=== PATIENT | female | born 1970 | race Caucasian/White ===

== ENCOUNTER 2019-02-06 08:45 | Emergency (ER) | payer MEDICARE, MEDICAID ==
[2019-02-06] MEDS ORDERED: METHYLPREDNISOLONE PF 125MG/VIAL IVP ONE (09:18)
[2019-02-06] MEDS ORDERED: IPRATROPIUM/ALBUTEROL (0.5MG/3MG) NEB INH ONE (09:18)
[2019-02-06 09:35] LABS: ABSOLUTE NEUTROPHIL COUNT 4.48; BASO % 0.2 % (0-6); EOS % 2.1 % (0-6); GRAN % 53.3 % (47-80); HEMATOCRIT 41.2 % (35.0-47.0); HEMOGLOBIN 13.1 gm/dl (11.6-16.0); LYMPH % 36.3 % (16-45); MEAN CELL VOLUME 87.7 fl (81-97); MEAN CORPUSCULAR HEMOGLOBIN 27.9 pg (27-33); MEAN CORPUSCULAR HGB CONC 31.8 g/dl (32-36); MONO % 8.1 % (0-9); PLATELET COUNT 385 K/uL (130-400); RED CELL DISTRIBUTION WIDTH 14.3 % (11.5-14.5); WHITE BLOOD COUNT W/O DIFF 8.4 K/uL (4.2-12.2)
--- NOTE | 2019-02-06 09:35 | Emergency Department Record ---
History of Present Illness - General Chief Complaint: Cough Stated Complaint: PERRY Time Seen by Provider: 02/06/19 08:52 Source: Patient Mode of Arrival: Ambulatory Limitations: No limitations - History of Present Illness Initial Comments: pt feels sob, has cough and has pain in her back that wraps around her chest that gets worse with movement. it started a week ago. no fevers. cough is nonproductive. this feels similar to when she had bronchitis only worse. MD Complaint: Cough, Other (sob) Onset/Timin -: Week(s) Severity: Moderate Severity scale (1-10): 4 Consistency: Intermittent Improves With: Rest Worsens With: Activity, Changing head position, Deep breaths Associated Symptoms: Chest pain, Cough, Myalgias, Shortness of breath - Related Data Previous Rx's Medication Instructions Recorded Prednisone [Prednisone 20Mg] 20 mg PO Q12HR #7 tab 02/06/19 Allergies Allergy/AdvReac Type Severity Reaction Status Date / Time lidocaine HCl [From Anastia] Allergy Severe ALTERED Verified 02/06/19 08:52 MENTAL STATUS Travel Screening - Travel/Exposure Within Last 30 Days Have you traveled within the last 30 days?: No - Travel/Exposure Within Last Year Have you traveled outside the [place] in the last year?: No - Additonal Travel Details Have you been exposed to anyone with a communicable illness?: No - Travel Symptoms Symptom Screening: None Review of Systems Reviewed: No additional complaints except as noted below Constitutional: Reports: As per HPI. Denies: Chills, Fever, Malaise, Night sweats, Weakness, Weight change Eyes: Reports: As per HPI. Denies: Eye discharge, Eye pain, Photophobia, Vision change ENT: Reports: As per HPI, Congestion. Denies: Dental pain, Ear pain, Epistaxis, Hearing loss, Throat pain Respiratory: Reports: As per HPI, Cough, Dyspnea. Denies: Hemoptysis, Stridor, Wheezes Cardiovascular: Reports: As per HPI, Chest pain. Denies: Arrhythmia, Dyspnea on exertion, Edema, Murmurs, Orthopnea, Palpitations, Paroxysmal nocturnal dyspnea, Rheumatic Fever, Syncope Endocrine: Reports: As per HPI. Denies: Fatigue, Heat or cold intolerance, Polydipsia, Polyuria Gastrointestinal: Reports: As per HPI. Denies: Abdominal pain, Constipation, Diarrhea, Hematemesis, Hematochezia, Melena, Nausea, Vomiting Genitourinary: Reports: As per HPI. Denies: Abnormal menses, Discharge, Dyspareunia, Dysuria, Frequency, Hematuria, Incontinence, Retention, Urgency Musculoskeletal: Reports: As per HPI, Back pain. Denies: Arthralgia, Gout, Joint swelling, Myalgia, Neck pain Skin: Reports: As per HPI. Denies: Bruising, Change in color, Change in hair/nails, Lesions, Pruritus, Rash Neurological: Reports: As per HPI. Denies: Abnormal gait, Confusion, Headache, Numbness, Paresthesias, Seizure, Tingling, Tremors, Vertigo, Weakness Psychiatric: Reports: As per HPI. Denies: Anxiety, Auditory hallucinations, Depression, Homicidal thoughts, Suicidal thoughts, Visual hallucinations Hematological/Lymphatic: Reports: As per HPI. Denies: Anemia, Blood Clots, Easy bleeding, Easy bruising, Swollen glands Past Medical History - SOCIAL HISTORY Smoking Status: Current every day smoker Alcohol Use: None Drug Use: None - RESPIRATORY Hx Respiratory Disorders: Yes Hx Asthma: Yes Hx Bronchitis: Yes - CARDIOVASCULAR Hx Cardio Disorders: Yes Hx Hypertension: Yes Comment:: high cholesterol - NEURO Hx Neuro Disorders: Yes Hx Headaches: Yes - GI Hx GI Disorders: Yes Hx Reflux: Yes Hx Irritable Bowel: Yes - Hx Genitourinary Disorders: Yes Comment:: 1 kidney - ENDOCRINE Hx Endocrine Disorders: Yes Hx Diabetes: Yes (borderline) - MUSCULOSKELETAL Hx Musculoskeletal Disorders: Yes Hx Fibromyalgia: Yes Comment:: carpal tunnel - PSYCH Hx Psych Problems: Yes Hx Anxiety: Yes Hx Depression: Yes Comment:: PTSD - HEMATOLOGY/ONCOLOGY Hx Hematology/Oncology Disorders: Yes Comment:: 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 negative: External canal tenderness Nasal Exam: Normal inspection. negative: Discharge, Sinus tenderness Mouth exam: Normal external inspection, Tongue normal Teeth exam: Normal inspection. negative: Dental caries Throat exam: Normal inspection. negative: Tonsillar erythema, Tonsillar exudate - Neck Neck exam: Normal inspection, Full ROM. negative: Tenderness - Respiratory Respiratory exam: Normal lung sounds bilaterally. negative: Respiratory distress - Cardiovascular Cardiovascular Exam: Regular rate, Normal rhythm, Normal heart sounds - GI/Abdominal GI/Abdominal exam: Soft, Normal bowel sounds. negative: Tenderness - Rectal Rectal exam: Deferred - exam: Deferred - Extremities Extremities exam: Normal inspection, Full ROM, Normal capillary refill. negative: Tenderness - Back Back exam: Reports: Normal inspection, Full ROM. Denies: Muscle spasm, Rash noted, Tenderness - Neurological Neurological exam: Alert, CN II-XII intact, Normal gait, Oriented X3 - Psychiatric Psychiatric exam: Normal affect, Normal mood - Skin Skin exam: Dry, Intact, Normal color, Warm Course Vital Signs 02/06/19 08:56 Temperature 97.8 F Pulse Rate 93 H Respiratory 20 Rate Blood Pressure 129/89 Pulse Ox 97 - Reevaluation(s) Reevaluation #1: 02/06/19 11:23 pt feels better Medical Decision Making - Lab Data Result diagrams: 02/06/19 08:55 02/06/19 08:55 Disposition Disposition: Discharge Clinical Impression: Bronchitis, Pleurisy Disposition: Home, Self-Care Condition: (1) Good Instructions: Acute Bronchitis (ED), Pleurisy (ED) Additional Instructions: follow up with family doctor. return sooner if worse. motrin as needed with food Prescriptions: Prednisone [Prednisone 20Mg] 20 mg PO Q12HR #7 tab Forms: Patient Portal Access Quality - Quality Measures Quality Measures: Adult Bronchitis (18-64yr) - Adult Bronchitis Quality Measure: Measure #116: Avoidance of ABX w/Adult Bronchitis Is patient being admitted: No Avoidance of ABX w/Bronchitis: <ABX neither prescribed nor dispensed> [2469F] - Blood Pressure Screening Does Patient Have Any of the Following: No Blood Pressure Classification: Pre-Hypertensive BP Reading Systolic Measurement: 129 Diastolic Measurement: 89 Screening for High Blood Pressure: < Pre-Hypertensive BP, F/U Documented > [G8913] Pre-Hypertensive Follow-up Interventions: Follow-up with rescreen every year.
[2019-02-06 09:48] LABS: BLOOD UREA NITROGEN 9 mg/dL (6-20); CREATININE 0.7 mg/dL (0.5-0.9); EST GLOMERULAR FILTRATION RATE > 60 mL/min
[2019-02-06 09:49] LABS: TOTAL PROTEIN 7.3 g/dL (6.6-8.7)
[2019-02-06 09:51] LABS: GLUCOSE,RANDOM 106 mg/dL (74-109)
[2019-02-06 09:53] LABS: ALB/GLOB RATIO 1.6 (1.1-1.8); ALBUMIN 4.5 g/dL (4.0-5.0); ALKALINE PHOSPHATASE 94 U/L (35-104); ALT/SGPT 21 U/L (<33); AST/SGOT 16 U/L (10.0-35.0)
[2019-02-06 09:57] LABS: NTpro B-NATRIURETIC PEPTIDE 37.57 pg/mL (<125)
[2019-02-06] MEDS ORDERED: KETOROLAC 30 MG/ML VIAL IVP ONE (10:15)
--- NOTE | 2019-02-06 11:00 | RADIOLOGY REPORT ---
EXAMINATION: Two View Chest Radiographs EXAM DATE: 02/06/2019 10:57 AM TECHNIQUE: Frontal and lateral views INDICATION: sob COMPARISON: None ENCOUNTER: Not applicable FINDINGS: The heart, mediastinum, and pulmonary vasculature are normal. Coarse bronchovascular markings. No karrie g consolidation or pleural effusions are present. IMPRESSION: Coarse bronchovascular markings/thick-walled bronchi. This appearance can be seen with asthma/bronchi tis, or viral pneumonitis. Dictated by: Sky Howe MD on 02/06/2019 10:57 AM. .
== END 2019-02-06 11:35 | disposition home or self-care (01) ==
LOC: ER 08:45
DX: J20.9 Acute bronchitis, unspecified (principal); R09.1 Pleurisy; R06.02 Shortness of breath; R07.9 Chest pain, unspecified; I10 Essential (primary) hypertension; F17.210 Nicotine dependence, cigarettes, uncomplicated
CPT/HCPCS: 71046; 80053; 83880; 84484; 85025; 85379; 93005; 93010; 94640; 96374; 96375; 99284; J1885; J2930